=== PATIENT | male | born 1990 | race Hispanic/Latino ===

== ENCOUNTER 2018-04-16 01:52 | Emergency (ER) | payer BC ==
[2018-04-16 02:54] LABS: Bilirubin Negative (Negative); Blood, Urine Trace (Negative); Clarity Clear (Clear); Glucose, Urine (Dipstick) Negative (Negative); Leukocyte Negative (Negative); Nitrite Negative (Negative); Protein, Urine (Dipstick) Negative (Neg-Trace); Urobilinogen 0.2 mg/dL (0.2-1.0)
[2018-04-16 03:00] LABS: Hemoglobin 14.8 g/dL (14.0-18.0); Mean Corpuscular HGB CONC 34.6 g/dL (32.0-36.0); Mean Corpuscular Hemoglobin 29.6 pg (27.0-31.0); Mean Corpuscular Volume 85.7 fL (78.0-98.0); Mean Platelet Volume 9.6 fL (7.4-10.4); Platelet Count 228 thou/uL (130-400); RBC Distribution Width 11.6 % (11.5-14.5); Red Blood Cell (RBC) Count 4.98 mill/uL (4.70-6.10)
[2018-04-16 03:02] LABS: Bacteria/HPF None Seen HPF (None Seen); Hyaline Casts/LPF 0-3 HYALINE CAST LPF (0-3 Hyaline); RBC/HPF 0-3 HPF (0-3); Squamous Epithelial 0-3 HPF (0-3); WBC/HPF 0-3 HPF (0-3)
[2018-04-16 03:10] LABS: ALT (SGPT) 36 U/L (8-55); AST (SGOT) 24 U/L (5-34); Albumin 4.3 g/dL (3.5-5.0); Alkaline Phosphatase 87 U/L (40-150); Anion Gap 14 mmol/L (10-20); BUN (Urea Nitrogen) 12 mg/dL (8.9-20.6); Bilirubin, Total 0.3 mg/dL (0.2-1.2); Calc. Creatinine Clearance 0 mL/min (70-130); Calcium 9.5 mg/dL (7.8-10.44); Carbon Dioxide 23 mmol/L (22-29); Chloride 108 mmol/L (98-107); Estimated GFR-MDRD Greater than 90; Glucose 111 mg/dL (70-105); Lipase 69 U/L (8-78); Potassium 3.5 mmol/L (3.5-5.1); Protein, Total 7.3 g/dL (6.0-8.3); Sodium 141 mmol/L (136-145)
[2018-04-16 03:11] LABS: Band 7 % (5-11); Eosinophils 1 % (0-10); Lymphocytes 12 % (21-51); MDiff Complete? YES; Monocytes 3 % (0-10); Neutrophil 77 % (42-75); Toxic Granulation SLIGHT
--- NOTE | 2018-04-16 09:34 | ULT ---
PRELIMINARY REPORT/[facility]/EMERGENTY AFTER-HOURS PROCEDURE US Scrotum US Duplex Arterial/Venous of the Testicles, Complete CLINICAL HISTORY: 27 years old, male; Pain; Other: Lower abd pain and testicular discomfort TECHNIQUE: Real-time ultrasound of the scrotum with color Doppler and image documentation. Real-time duplex ultr asound scan of the arterial and venous flow of the scrotal contents with color Doppler flow and spect ral waveform analysis. COMPARISON: No relevant prior studies available. FINDINGS: Scrotal ultrasound was performed. Duplex ultrasound scan with color Doppler flow and spectral wavefor m analysis was also performed for evaluation of testicular blood flow and to rule out torsion. Right testicle: No acute findings. No mass. Normal blood flow. No evidence of torsion. Left testicle: No acute findings. No mass. Normal blood flow. No evidence of torsion. Epididymides: Right epididymal cyst measuring up to 1.9 cm. Small left epididymal cysts measuring up to 0.4 cm. Scrotum: No acute findings. IMPRESSION: No testicular mass or torsion. Right epididymal cyst and small left epididymal cysts described above. Thank you for allowing us to participate in the care of your patient. Dictated and Authenticated by: Aditya Mcgee MD 04/16/2018 3:33 AM Central Time ([place] & [place]) FINAL REPORT SCROTAL SONOGRAM WITH DUPLEX EVALUATION: DATE: 04/16/18. TIME: Performed on an emergency basis at 0255 hours. HISTORY: Scrotal pain. FINDINGS: Agree with the preliminary report by Dr. Mcgee from [facility]. No sonographic evidence of te sticular mass or torsion. Right epididymal head cyst measures up to 1.9 cm. POS: [facility]
--- NOTE | 2018-04-16 09:36 | CT ---
PRELIMINARY REPORT/[facility]/EMERGENTY AFTER-HOURS PROCEDURE CT Abdomen and Pelvis Without Intravenous Contrast CLINICAL HISTORY: 27 years old, male; Pain; Abdominal pain; Localized; Lower; Patient HX: Lower abd pain with fever and diarrhea, elevated wbc TECHNIQUE: Axial computed tomography images of the abdomen and pelvis without intravenous contrast. All CT scans at this facility use at least one of these dose optimization techniques: automated exposure control; mA and/or kV adjustment per patient size (includes targeted exams where dose is matched to clinical indication); or iterative reconstruction. Coronal reformatted images were created and reviewed. COMPARISON: No relevant prior studies available. FINDINGS: Lung bases: No acute findings. No mass. No consolidation. ABDOMEN: Liver: Mild hepatomegaly. No mass. Gallbladder and bile ducts: The gallbladder is contracted. Pancreas: No ductal dilation. No mass. Spleen: No mass. Adrenals: No mass. Kidneys and ureters: No obstructing stones. No hydronephrosis. Stomach and bowel: No evidence of bowel obstruction. Diverticulosis. Fecal loading ascending and keyes sverse colon. Food/debris within stomach. PELVIS: Appendix: No findings to suggest acute appendicitis. Bladder: No stones. Reproductive: No acute findings. ABDOMEN and PELVIS: Intraperitoneal space: No acute findings. No free air. No significant fluid collection. Bones/joints: No acute fracture. Soft tissues: No acute findings. Vasculature: No acute findings. No abdominal aortic aneurysm. Lymph nodes: No significant lymphadenopathy. IMPRESSION: No acute findings. Thank you for allowing us to participate in the care of your patient. Dictated and Authenticated by: Aditya Mcgee MD 04/16/2018 4:09 AM Central Time ([place] & [place]) FINAL REPORT CT ABDOMEN AND PELVIS NONCONTRAST: DATE: 04/16/18. TIME: Performed on an emergency basis at 0339 hours. HISTORY: Fever. Flank pain. Groin pain. FINDINGS: Agree with the preliminary report by Dr. Mcgee from [facility]. No CT evidence of urinary tra ct obstruction or calcification. Lack of contrast decreases sensitivity of exam for other abnormalit ies. POS: [facility]
[2018-04-19 02:07] LABS: Chlamydia by PCR Not Detected (NotDetected); GC by PCR Not Detected (NotDetected)
== END 2018-04-16 04:39 | disposition home or self-care (01) ==
LOC: SCSER 01:52
DX: K52.9 Noninfective gastroenteritis and colitis, unspecified (principal); J45.909 Unspecified asthma, uncomplicated; F41.9 Anxiety disorder, unspecified; F32.9 Major depressive disorder, single episode, unspecified; Z79.899 Other long term (current) drug therapy
CPT/HCPCS: 74176; 76870; 80053; 81003; 81015; 83605; 83690; 85025; 87491; 87591; 93976; 96360

== ENCOUNTER 2018-04-29 00:46 | Emergency (ER) | payer BC | END 2018-04-29 01:20 | disposition home or self-care (01) | LOC: SCSER 00:46 | DX: I80.9 Phlebitis and thrombophlebitis of unspecified site (principal); J45.909 Unspecified asthma, uncomplicated; F41.9 Anxiety disorder, unspecified; F32.9 Major depressive disorder, single episode, unspecified; Z79.899 Other long term (current) drug therapy | CPT/HCPCS: 99283 ==

== ENCOUNTER 2018-06-19 10:08 | Outpatient (CLI) | payer BC | END 2018-06-19 10:09 | disposition home or self-care (01) | LOC: CTENTCT 10:08 | PROVIDERS: ATTEND Specialist | DX: J01.81 Other acute recurrent sinusitis (principal) | CPT/HCPCS: 70486 ==

== ENCOUNTER 2018-07-26 12:59 | Day surgery (SDC) | payer BC ==
[2018-07-25 11:41] VITALS: BMI 34.4
[2018-07-26] MEDS ORDERED: Oxymetazoline HCl 0.05% ( 15 ML ) ONE ×3 (14:52→19:17)
[2018-07-26] MEDS ORDERED: Fentanyl 100 MCG/2 ML VIAL ONE ×3 (16:26→18:18)
[2018-07-26] MEDS ORDERED: Midazolam HCl 2 mg/2 ml Vial ONE (16:26)
[2018-07-26] MEDS ORDERED: Lidocaine 1% w/Epinephrine 1:100K 30 ML VIAL ONE (16:30)
[2018-07-26] MEDS ORDERED: Meperidine HCl/PF 25 MG/ML VIAL ONE (17:46)
[2018-07-26] MEDS ORDERED: Promethazine HCl 25 MG/ML VIAL ONE (17:48)
[2018-07-26] MEDS ORDERED: Hydrocodone-Acetamin 15 ML UDCUP ONE (20:31)
--- NOTE | 2018-07-27 09:17 | OP ---
PREOPERATIVE DIAGNOSES: Chronic sinusitis, nasal polyposis, hypertrophic inferior turbinates, pansin usitis. POSTOPERATIVE DIAGNOSES: Chronic sinusitis, nasal polyposis, hypertrophic inferior turbinates, pansi nusitis. PROCEDURES PERFORMED: 1. Bilateral nasal endoscopy with maxillary antrostomy with removal of tissue. 2. Bilateral nasal endoscopy with total ethmoidectomy. 3. Bilateral nasal endoscopy with frontal sinusotomy. 4. Bilateral nasal endoscopy with sphenoidotomy. 5. Bilateral nasal endoscopy with submucosal resection of inferior turbinates. PROCEDURE IN DETAIL: After consent was obtained, the patient was identified, brought to the operatin g room, and placed on the operating room table in the supine position. Consent was obtained, notifyi ng the patient of the possibility of additional infections, bleeding, brain injury, and eye/orbital i njury. The patient was placed on the operating room table, and general endotracheal anesthesia and intravenous access was obtained. The patient was then positioned, prepped and draped for endoscopic sinus surgery. Nasal preparation included trimming nasal vestibular hairs and spraying in topical Af rin. We then placed Afrin topical solution on nasal pledgets and strategically located them intranas ally. The perinasal mucosa was injected with 1% lidocaine with 1:100,000 epinephrine in the submucop erichondrial plane of the septum, lateral nasal wall, and anterior to the uncinate. The patient was then prepped and draped in a sterile fashion and positioned for endoscopic sinus surgery. Bilateral Maxillary Antrostomy: The uncinate was then identified and the extent of the uncinate was appreciated by out-fracturing the uncinate with the ball-tip probe. We then used the sickle blade to disarticulate the uncinate from the lateral nasal wall. This was then removed with straight biting and upbiting punches with the remaining shrouds of mucosa and bony septum removed with the micro-debr ider. The natural os of the maxillary sinus was then identified and enlarged with the maxillary punc hes and back biting forceps. Bilateral Total Ethmoidectomy: The anterior face of the ethmoid bulla was entered and with the micro -debrider, dissection continued posteriorly to the ground lamella. The limits of dissection included the insertion of the middle turbinate, medial orbital wall, and base of skull. We similarly identif ied the frontal recess and removed shrouds of bone and debris in that region to obtain patency into t he agger nasi region and frontal recess. We then entered the ground lamella and its anteroinferior a spect and proceeded posteriorly, opening the posterior ethmoid air-cell system. Again, the limits of dissection included the base of skull and medial orbital wall. Endoscopic Sinus Surgery: With the 0-degree endoscope, the patient underwent systematic nasal endosc opy. There were no suspicious internasal masses or lesions identified. We then focused our attentio n to the osteomeatal complex region under the middle turbinate. Bilateral Sphenoidotomy: The anterior face of the sphenoid was identified and entered in its extreme anteroinferior aspect. A sphenoid punch was then used to enlarge the sphenoidotomy and no injury to the optic nerve or internal carotid artery occurred. Bilateral Outfracture & Cautery of the Inferior Turbinates: The inferior turbinates were visualized with a 0-degree endoscope and outfractured with a Coyote elevator. The inferior medial aspect was cau terized with the electrocautery. Hemostasis was obtained . After adequate airway was established, w e turned our attention to the contralateral side and used a similar procedure. Again, a Coyote elevat or was used to outfracture inferior turbinates under endoscopic visualization. With a suction cauter y, the free inferior medial aspect was cauterized under direct visualization along the length of the inferior turbinate. At the completion of the case, Rice keel splints were placed in the ethmoid cavities after the ethmoi dectomy. There were no complications. The patient tolerated the procedure well and was discharged t o the recovery room in stable condition prior to return to the preoperative Day Stay with [facility]. Prescriptions for pain medication and antibiotics were provided. The patient received intramuscular Depo-Medrol during the case.
== END 2018-07-26 21:00 | disposition home or self-care (01) ==
LOC: SDC 12:59
PROVIDERS: ATTEND Specialist
PROC: 09BU8ZZ Excision of Right Ethmoid Sinus, Via Natural or Artificial Opening Endoscopic (ICD-10-PCS; principal; 2018-07-26)
PROC: 09BV8ZZ Excision of Left Ethmoid Sinus, Via Natural or Artificial Opening Endoscopic (ICD-10-PCS; principal; 2018-07-26)
DX: J32.4 Chronic pansinusitis (principal); J34.3 Hypertrophy of nasal turbinates; Z88.8 Allergy status to other drugs, medicaments and biological substances
CPT/HCPCS: 96374; J2001; J2175; J2250; J2550; J3010

== ENCOUNTER 2025-07-08 15:02 | Outpatient (CLI) | payer BC ==
[~2025-07-08 15:02] MED LIST: Iopamidol-370 76% 500 ML MDV (1 ML CHARGE) ONE
== END 2025-07-08 15:03 | disposition home or self-care (01) ==
LOC: CT 15:02
PROVIDERS: ATTEND Internal Medicine Gastroenterology
DX: R10.13 Epigastric pain (principal); K52.9 Noninfective gastroenteritis and colitis, unspecified; R15.2 Fecal urgency; K92.1 Melena; R63.4 Abnormal weight loss; I88.0 Nonspecific mesenteric lymphadenitis
CPT/HCPCS: 74177; Q9967